=== PATIENT | female | born 1995 | race African-American/Black ===

== ENCOUNTER → 2017-02-06 | Emergency (ER) | payer OTHER ==
[~2017-02-06] MED LIST: NS 1,000 ML IV ONE; ROCEPHIN 1 GM/NS 50 ML IV ONE
--- NOTE | 2017-02-06 12:54 | PROVIDER DOCUMENTATION ---
HPI-Female /OB/Breast - General Chief Complaint: Abdominal Pain Stated Complaint: ABD/BACK PAIN Time Seen by Provider: 02/06/17 12:05 Source: reports: patient Allergies/Adverse Reactions: Patient Allergies Allergy/AdvReac Type Severity Reaction Status Date / Time No Known Allergies Allergy Verified 02/06/17 15:29 Home Medications: Home Medication List Medication Instructions Recorded Confirmed Last Taken Type No Home Medications 02/06/17 02/06/17 Unknown History - History of Present Illness-Female /OB Nature of Presenting Problem: 21 yo at 24 weeks IUP with 4 am onset of low back pain and feeling of intermittent cramping in abdomen. No fever or chills. Notes some decrease in movement today. [place] fine yesterday. No dysuria. No vag bleeding, no vag d /c. LMP1. Rh neg. Was seen in [place] with early preg bleeding- got rhogam. prior deliveries uncomplicated term NSVDs. Does patient report she is ?: Yes Location of complaint: reports: suprapubic, other (lower abdominal) Radiation: reports: vaginal Quality of Pain: reports: cramping Onset/Duration: reports: 4-6 hours ago Timing: reports: still present Context/Activities at Onset: reports: sleep Vaginal Symptoms: reports: no symptoms Vaginal Bleeding Amount: None Related Symptoms: reports: pelvic pain, abdominal pain Leakage of Fluid: none Associated Symptoms: reports: back/neck pain. denies: fever/chills, nausea, vomiting Recently seen or treated by another doctor?: No - LMP/ History : 3 Para: 2 Review of Systems - Adult - REVIEW OF SYSTEMS - ADULT Constitutional: reports: no symptoms reported Eyes: reports: no symptoms reported Ears, Nose, Mouth & Throat: reports: no symptoms reported Cardiovascular: reports: no symptoms reported Respiratory: reports: no symptoms reported Gastrointestinal: reports: see HPI, abdominal pain Genitourinary: denies: dysuria, discharge Musculoskeletal: reports: back pain Neurological: reports: no symptoms reported Psychiatric: reports: no symptoms reported Past History - Adult - PAST MEDICAL HISTORY-ADULT Review of Records: reports: Nursing Assessment Review Major Childhood Illnesses: reports: history unknown Cardiovascular: reports: denies history Respiratory: reports: asthma Gastrointestinal: reports: denies history LMP: 08/23/16 Neurological: reports: denies history Physical Exam-General - PHYSICAL EXAM-ADULT Initial Vital Signs Reviewed: Yes (FHT 155) - CONSTITUTIONAL General Appearance: appears well, alert, no apparent distress - EYES Eyes: PERRL/EOMI - HEAD, EARS, NOSE, MOUTH & THROAT HENMT: normocephalic/atraumatic, moist mucous membranes, normal ENT inspection - NECK Neck: non-tender, full range of motion, normal inspection - RESPIRATORY Respiratory: chest non-tender, lungs clear, normal breath sounds - CARDIOVASCULAR Cardiovascular: regular rate, rhythm, no edema, no gallop, no murmur - GASTROINTESTINAL (ABDOMEN) Abdominal Exam: normal bowel sounds, soft, no organomegaly, tenderness (mild tenderenss over uterus) - GENITOURINARY Female Genitalia/Pelvic Exam: external exam normal (bimanual exam- cervix soft, internal os closed, high in pelvis) - LYMPHATIC Lymphatic: no adenopathy - MUSCULOSKELETAL Back Exam: normal inspection, no CVA tenderness Extremity: normal range of motion, non-tender, normal inspection, no pedal edema - SKIN Integumentary: normal color, normal turgor, warm/dry - NEUROLOGIC Neurologic: grossly normal, no motor/sensory deficits - PSYCHIATRIC Psych/Mental Status: normal mood/affect, normal thought content, oriented x 3 Progress - PLAN OF CARE/RESULTS Progress/Plan/Lab Results: Laboratory Tests 02/06/17 02/06/17 02/06/17 13:39 13:39 13:39 WBC 8.79 RBC 3.35 L Hgb 10.1 L Hct 30.0 L MCV 89.6 MCH 30.1 MCHC 33.7 RDW Std Deviation 13.7 Plt Count 310 MPV 9.7 Immature Gran % (Auto) 0.3 Neut % (Auto) 64.8 Lymph % (Auto) 23.5 Reagan % (Auto) 8.6 Eos % (Auto) 2.7 Baso % (Auto) 0.1 Immature Gran # (Auto) 0.03 Neut # (Auto) 5.68 Lymph # (Auto) 2.07 Reagan # (Auto) 0.76 H Eos # (Auto) 0.24 Baso # (Auto) 0.01 Sodium 131 L Potassium 3.7 Chloride 98 Carbon Dioxide 24 L Anion Gap 9 BUN 9 Creatinine 0.6 Estimated GFR/1.73 m2 > 60 BUN/Creatinine Ratio 15 Glucose 80 Calculated Osmolality 260 Calcium 7.8 L Total Bilirubin 0.16 L AST 11 ALT 8 L Alkaline Phosphatase 91 Total Protein 6.3 Albumin 3.1 L Globulin 3.2 Albumin/Globulin Ratio 1.0 Urine Source Urine Color Urine Turbidity Urine pH Ur Specific Datil Urine Protein Ur Glucose (Stick) Ur Ketones (Stick) Urine Blood Urine Nitrite Urine Bilirubin Urobilinogen Dipstick Urine Leukocytes Urine WBC (Auto) Urine RBC (Auto) U Epithel Cells (Auto) Urine Bacteria (Auto) Blood Type O NEGATIVE Weak D (Du) WEAK D NEGATIVE 02/06/17 14:00 WBC RBC Hgb Hct MCV MCH MCHC RDW Std Deviation Plt Count MPV Immature Gran % (Auto) Neut % (Auto) Lymph % (Auto) Reagan % (Auto) Eos % (Auto) Baso % (Auto) Immature Gran # (Auto) Neut # (Auto) Lymph # (Auto) Reagan # (Auto) Eos # (Auto) Baso # (Auto) Sodium Potassium Chloride Carbon Dioxide Anion Gap BUN Creatinine Estimated GFR/1.73 m2 BUN/Creatinine Ratio Glucose Calculated Osmolality Calcium Total Bilirubin AST ALT Alkaline Phosphatase Total Protein Albumin Globulin Albumin/Globulin Ratio Urine Source CLEAN CATCH Urine Color YELLOW Urine Turbidity CLEAR Urine pH 8.0 Ur Specific Datil 1.016 Urine Protein NEGATIVE Ur Glucose (Stick) NEGATIVE Ur Ketones (Stick) NEGATIVE Urine Blood SMALL A Urine Nitrite NEGATIVE Urine Bilirubin NEGATIVE Urobilinogen Dipstick NORMAL Urine Leukocytes LARGE A Urine WBC (Auto) 10-20 A Urine RBC (Auto) <10 U Epithel Cells (Auto) <10 Urine Bacteria (Auto) 1+ Blood Type Weak D (Du) Orders Category Date Time Status Saline Loc NOW Care 02/06/17 12:30 Active US OBS COMPLETE > 14 WKS [US] Stat Exams 02/06/17 12:30 Draft ABORH [BBK] Stat Lab 02/06/17 13:39 Completed CBC WITH DIFF [HEME] Stat Lab 02/06/17 13:39 Completed CMP [COMPREHENSIVE METABOLIC PANEL] [CHEM] Stat Lab 02/06/17 13:39 Completed URINALYSIS [URINALYSIS] Stat Lab 02/06/17 14:00 Completed 0.9% Sodium Chloride Inj [Ns] 1,000 ml Med 02/06/17 12:30 Discontinued IV 999 mls/hr CefTRIAXONE 1 GM/NS [Rocephin 1 gm/Ns] 50 ml Med 02/06/17 14:44 Discontinued IV NOW Vital Signs Temp Pulse Resp BP Pulse Ox 02/06/17 12:00 98.1 F 87 18 126/63 100 No Known Allergies Allergy (Verified 02/06/17 15:29) No Home Medications 02/06/17 Laboratory 02/06/17 02/06/17 02/06/17 14:00 13:39 13:39 WBC 8.79 RBC 3.35 L Hgb 10.1 L Hct 30.0 L MCV 89.6 MCH 30.1 MCHC 33.7 RDW Std Deviation 13.7 Plt Count 310 MPV 9.7 Immature Gran % (Auto) 0.3 Neut % (Auto) 64.8 Lymph % (Auto) 23.5 Reagan % (Auto) 8.6 Eos % (Auto) 2.7 Baso % (Auto) 0.1 Immature Gran # (Auto) 0.03 Neut # (Auto) 5.68 Lymph # (Auto) 2.07 Reagan # (Auto) 0.76 H Eos # (Auto) 0.24 Baso # (Auto) 0.01 Sodium 131 L Potassium 3.7 Chloride 98 Carbon Dioxide 24 L Anion Gap 9 BUN 9 Creatinine 0.6 Estimated GFR/1.73 m2 > 60 BUN/Creatinine Ratio 15 Glucose 80 Calculated Osmolality 260 Calcium 7.8 L Total Bilirubin 0.16 L AST 11 ALT 8 L Alkaline Phosphatase 91 Total Protein 6.3 Albumin 3.1 L Globulin 3.2 Albumin/Globulin Ratio 1.0 Urine Source CLEAN CATCH Urine Color YELLOW Urine Turbidity CLEAR Urine pH 8.0 Ur Specific Datil 1.016 Urine Protein NEGATIVE Ur Glucose (Stick) NEGATIVE Ur Ketones (Stick) NEGATIVE Urine Blood SMALL A Urine Nitrite NEGATIVE Urine Bilirubin NEGATIVE Urobilinogen Dipstick NORMAL Urine Leukocytes LARGE A Urine WBC (Auto) 10-20 A Urine RBC (Auto) <10 U Epithel Cells (Auto) <10 Urine Bacteria (Auto) 1+ Blood Type Weak D (Du) 02/06/17 13:39 WBC RBC Hgb Hct MCV MCH MCHC RDW Std Deviation Plt Count MPV Immature Gran % (Auto) Neut % (Auto) Lymph % (Auto) Reagan % (Auto) Eos % (Auto) Baso % (Auto) Immature Gran # (Auto) Neut # (Auto) Lymph # (Auto) Reagan # (Auto) Eos # (Auto) Baso # (Auto) Sodium Potassium Chloride Carbon Dioxide Anion Gap BUN Creatinine Estimated GFR/1.73 m2 BUN/Creatinine Ratio Glucose Calculated Osmolality Calcium Total Bilirubin AST ALT Alkaline Phosphatase Total Protein Albumin Globulin Albumin/Globulin Ratio Urine Source Urine Color Urine Turbidity Urine pH Ur Specific Datil Urine Protein Ur Glucose (Stick) Ur Ketones (Stick) Urine Blood Urine Nitrite Urine Bilirubin Urobilinogen Dipstick Urine Leukocytes Urine WBC (Auto) Urine RBC (Auto) U Epithel Cells (Auto) Urine Bacteria (Auto) Blood Type O NEGATIVE Weak D (Du) WEAK D NEGATIVE - ULTRASOUND (By Radiology) 1 US Study: other (OB- 23+ week IUP, closed cervical os) - CONSULTS/PCP/HOSPITALIST Notification #1 *Consult/PCP/Hospitalist*: Dr Ingram Time Discussed: 15:30 Reason/Comments: will transfer to Labor and Delivery for monitering Consult Disposition: other Departure - Departure Time of Disposition Order: 15:36 (transfer to labor and delivery, discussed with Dr Ingram) DIAGNOSIS: , Abdominal pain affecting Disposition: OTHER 70 Certified Medical Emergency: Emergent Condition: Stable
[2017-02-06 13:47] LABS: MANUAL DIFF NEEDED? NO
[2017-02-06 13:51] LABS: BASO% 0.1 % (0.0-0.8); EOS# 0.24 X1000 (0.0-0.7); EOS% 2.7 % (0.0-10.0); HEMOGLOBIN 10.1 g/dL (12.0-16.0); IMM GRAN# 0.03 X1000 (0.0-0.04); IMM GRAN% 0.3 % (0.0-0.5); LYMPH# 2.07 X1000 (1.2-3.4); LYMPH% 23.5 % (20.5-51.1); MCH 30.1 PG (27-31); MCHC 33.7 g/dL (33-37); MCV 89.6 FL (81-99); MONO# 0.76 X1000 (0.11-0.59); MONO% 8.6 % (1.7-9.3); MPV 9.7 FL (7.4-10.4); NEUT% 64.8 % (42.2-75.2); PLT 310 X1000 (130-400); RBC 3.35 XMIL (4.2-5.4)
[2017-02-06 14:03] LABS: AGAP 9; ALBUMIN 3.1 g/dL (3.5-5.0); ALKALINE PHOSPHATASE 91 U/L (32-104); BUN 9 mg/dL (8-22); CALCIUM 7.8 mg/dL (8.8-10.2); CHLORIDE 98 mmol/L (98-107); COSMO 260; GOT 11 U/L (10-30); GPT 8 U/L (10-36); POTASSIUM 3.7 mmol/L (3.5-5.1); SODIUM 131 mmol/L (136-145); TCO2 24 mmol/L (25-35); TOTAL BILIRUBIN 0.16 mg/dL (0.20-1.00); TOTAL PROTEIN 6.3 g/dL (6.3-8.3)
[2017-02-06 14:08] LABS: URINE MICRO REVIEW NEEDED? NO; URINE SOURCE CLEAN CATCH
[2017-02-06 14:13] LABS: BILIRUBIN URINE NEGATIVE (NEGATIVE); BLOOD URINE SMALL (NEGATIVE); COLOR YELLOW; GLUCOSE URINE NEGATIVE (NEGATIVE); LEUKOCYTES URINE LARGE (NEGATIVE); NITRITE URINE NEGATIVE (NEGATIVE); PROTEIN URINE NEGATIVE (NEGATIVE); SP GRAVITY URINE 1.016; TURBIDITY URINE CLEAR (CLEAR); UR EPITHELIAL CELLS <10 /HPF (<10); URINE BACTERIA 1+ /HPF; URINE RBC <10 /HPF (<10); UROBILINOGEN URINE NORMAL (NORMAL)
--- NOTE | 2017-02-06 14:27 | Diag Imaging Result Document ---
PROCEDURE NAME: US OBS COMPLETE > 14 WKS - 02/06/2017 OBSTETRICAL ULTRASOUND: COMPARISON: None available. FINDINGS: There is a single viable intrauterine gestation. The fetus is in cephalic position and the placenta is located posteriorly. The cervix is closed, and there is no evidence of placenta previa. The cervix measures up to 3 cm in length. No gross or placental anomalies are appreciated. Specifically, a 4-chamber heart, 3-vessel umbilical cord, bladder and kidneys, face and orbits, stomach, spine, and diaphragm are identified and are unremarkable. The amniotic fluid level is subjectively normal. The measured heart rate is 150 beats per minute. The gestational age by ultrasound is 23 weeks 1 day +/-10 days. IMPRESSION: Single viable intrauterine gestation with no gross anomalies appreciated.
[2017-02-06 15:47] VITALS: BP 120/73
== END | disposition short-term general hospital (02) ==
LOC: ED 11:08
DX: O26.892 Other specified pregnancy related conditions, second trimester (principal); R10.30 Lower abdominal pain, unspecified; R10.2 Pelvic and perineal pain; M54.5 Low back pain; Z3A.24 24 weeks gestation of pregnancy
CPT/HCPCS: 76805; 80053; 81001; 85025; 86900; 86901; J0696; J7030